=== PATIENT | female | born 1965 | race Caucasian/White ===

== ENCOUNTER 2025-03-06 16:25 | Emergency (ER) | payer OTHER, SELFPAY ==
[2025-03-06 16:32] VITALS: BP 198/88; PULSE 99; RESP 18; TEMP 36.8; O2SAT 100; BMI 32.7
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
[2025-03-06 16:50] VITALS: BP 176/74; PULSE 94; RESP 17; O2SAT 97
== END 2025-03-06 16:50 | disposition home or self-care (01) ==
PROVIDERS: Emergency Provider Emergency Medicine
DX: S16.1XXA Strain of muscle, fascia and tendon at neck level, initial encounter (principal); I10 Essential (primary) hypertension; V89.2XXA Person injured in unspecified motor-vehicle accident, traffic, initial encounter
CPT/HCPCS: 99281